=== PATIENT | female | born 1940 | race Asian ===

== ENCOUNTER 2020-09-26 00:14 | Inpatient (IN) | payer OTHER, MEDICAID, SELFPAY ==
[~2020-09-26] VITALS: Ht 144.8 cm; Wt 51.2 kg
[2020-09-26 12:00] VITALS: BP_SYST 140
[2020-09-26] MEDS ORDERED: OMEG-158 PO (14:24)
[2020-09-26] MEDS ORDERED: MULT-1117 PO (14:25)
[2020-09-26 15:58] LABS: BASOPHILS % (AUTO) 0.1 % (0.0-2.0); EOSINOPHILS % (AUTO) 0.3 % (0.0-4.0); HEMATOCRIT 38.7 % (36-54); HEMOGLOBIN 13.6 g/dL (14.0-18.0); LYMPHOCYTES % (AUTO) 9.5 % (20.5-51.5); MEAN CORPUSCULAR HEMOGLOBIN 32 pg (27-31); MEAN CORPUSCULAR HGB CONC 35 % (32-36); MEAN CORPUSCULAR VOLUME 91 fL (79.0-98.0); MONOCYTES # (AUTO) 0.3 K/uL (0.0-1.0); MONOCYTES % (AUTO) 3.3 % (1.7-9.3); NEUTROPHILS # (AUTO) 8.7 K/uL (1.8-7.7); NEUTROPHILS % (AUTO) 86.8 % (40.0-70.0); PLATELET COUNT (AUTO) 302 K/uL (130-430); RED BLOOD CELL COUNT(AUTO) 4.27 MIL/uL (4.2-6.2); RED CELL DISTRIBUTION WIDTH 12.5 % (9.0-15.0)
[2020-09-26 16:13] LABS: CHOLESTEROL 221 mg/dL (<200); HDL CHOLESTEROL 59 mg/dL (>45); LDL CHOLESTEROL 136 mg/dL (<100); TRIGLYCERIDES 78 mg/dL (30-150)
[2020-09-26 16:14] VITALS: BP_SYST 132
[2020-09-26 16:20] LABS: ALANINE AMINOTRANSFERASE 19 U/L (12-78); ALBUMIN 3.4 g/dL (3.4-4.8); ANION GAP 9 (5-15); ASPARTATE AMINOTRANSFERASE 16 U/L (10-37); CHLORIDE 97 mmol/L (98-107); CREATININE 0.74 mg/dL (0.55-1.30); GLUCOSE 178 mg/dL (70-99); POTASSIUM 3.5 mmol/L (3.5-5.1); SODIUM SERUM 135 mmol/L (136-145); THYROID STIMULATING HORMONE 0.29 uIu/mL (0.36-3.74); TOTAL BILIRUBIN 0.5 mg/dL (0.0-1.0); UREA NITROGEN, BLOOD 10 mg/dL (8-21)
[2020-09-26 16:45] LABS: ERYTHROCYTE SEDIMENTATION RATE 37 MM/HR (0-15)
[2020-09-26 16:47] LABS: INR 0.9 (0.80-1.20); PROTHROMBIN TIME 9.6 SECS (9.5-12.5)
[2020-09-26] MEDS: DIPHENHYDRAMINE INJ 50 MG/ML VIAL IVP PRN (16:51)
[2020-09-26] MEDS: PIPERACILLIN/TAZO 3.375/DEX-IS 50 ML IV SCH ×2 (16:52→23:03)
[2020-09-26] MEDS: D5/0.45 NS 1,000 ML IV SCH (16:52)
[2020-09-26 20:03] VITALS: BP_SYST 111
[2020-09-27] VITALS: BP_SYST 128
[2020-09-27] MEDS ORDERED: VANCOMYCIN HCL 1 GM/NS PREMIX 250 ML IV ONE (01:30)
[2020-09-27] MEDS: VANCOMYCIN HCL 1000 MG/VIAL IV ONE ×2 (02:23→02:26)
[2020-09-27 08:00] VITALS: BP_SYST 136
[2020-09-27] MEDS: EMOLLIENT COMBINATION NO.73 78 GM CREAM..G. TP SCH ×2 (08:39→21:08)
[2020-09-27 12:15] VITALS: BP_SYST 126
[2020-09-27] MEDS: D5/0.45 NS 1,000 ML IV SCH (14:43)
[2020-09-27] MEDS: DIPHENHYDRAMINE INJ 50 MG/ML VIAL IVP PRN (14:46)
[2020-09-27 16:30] VITALS: BP_SYST 129
[2020-09-27 20:00] VITALS: BP_SYST 133
[2020-09-27] MEDS: VANCOMYCIN HCL 750 MG in NS 250 ML IV SCH (22:51)
[2020-09-28 00:02] VITALS: BP_SYST 150
[2020-09-28] MEDS: D5/0.45 NS 1,000 ML IV SCH (05:10)
[2020-09-28 08:18] VITALS: BP_SYST 154
[2020-09-28] MEDS: OMEGA-3/DHA/EPA/FISH OIL 1 GM CAPSULE PO SCH (08:19)
[2020-09-28] MEDS: EMOLLIENT COMBINATION NO.73 78 GM CREAM..G. TP SCH ×2 (08:19→20:20)
[2020-09-28] MEDS: MULTIVITAMINS TAB 1 TABLET PO SCH (08:19)
[2020-09-28 12:05] VITALS: BP_SYST 144
[2020-09-28] MEDS ORDERED: AMMONIUM LACTATE 226 GM LOTION TP ONE (13:00)
[2020-09-28 16:32] VITALS: BP_SYST 151
[2020-09-28 20:00] VITALS: BP_SYST 144
[2020-09-28] MEDS: AMMONIUM LACTATE 226 GM LOTION TP SCH (20:21)
[2020-09-28] MEDS: VANCOMYCIN HCL 750 MG in NS 250 ML IV SCH (22:58)
[2020-09-29 00:41] VITALS: BP_SYST 147
[2020-09-29] MEDS: D5/0.45 NS 1,000 ML IV SCH (03:08)
[2020-09-29 07:00] LABS: BASOPHILS % (AUTO) 0.6 % (0.0-2.0); EOSINOPHILS # (AUTO) 0.2 K/uL (0.0-0.4); EOSINOPHILS % (AUTO) 3.4 % (0.0-4.0); HEMATOCRIT 38.1 % (36-48); HEMOGLOBIN 12.8 g/dL (12.0-16.0); LYMPHOCYTES # (AUTO) 1.3 K/uL (1.0-5.5); LYMPHOCYTES % (AUTO) 18.3 % (20.5-51.5); MEAN CORPUSCULAR HEMOGLOBIN 31 pg (27-31); MEAN CORPUSCULAR HGB CONC 34 % (32-36); MEAN CORPUSCULAR VOLUME 92 fL (79.0-98.0); MONOCYTES # (AUTO) 0.8 K/uL (0.0-1.0); MONOCYTES % (AUTO) 11.5 % (1.7-9.3); NEUTROPHILS # (AUTO) 4.5 K/uL (1.8-7.7); NEUTROPHILS % (AUTO) 66.2 % (40.0-70.0); PLATELET COUNT (AUTO) 277 K/uL (130-430); RED BLOOD CELL COUNT(AUTO) 4.16 MIL/uL (4.2-6.2); RED CELL DISTRIBUTION WIDTH 12.7 % (9.0-15.0); WHITE BLOOD COUNT (AUTO) 6.9 K/uL (4.8-10.8)
[2020-09-29 07:23] LABS: ANION GAP 9 (5-15); CALCIUM 8.3 mg/dL (8.4-11.0); CHLORIDE 103 mmol/L (98-107); CREATININE 0.64 mg/dL (0.55-1.30); GLUCOSE 103 mg/dL (70-99); POTASSIUM 3.7 mmol/L (3.5-5.1); SODIUM SERUM 138 mmol/L (136-145); UREA NITROGEN, BLOOD 9 mg/dL (8-21)
[2020-09-29 08:19] VITALS: BP_SYST 128
[2020-09-29] MEDS: OMEGA-3/DHA/EPA/FISH OIL 1 GM CAPSULE PO SCH (08:21)
[2020-09-29] MEDS: MULTIVITAMINS TAB 1 TABLET PO SCH (08:21)
[2020-09-29] MEDS: AMMONIUM LACTATE 226 GM LOTION TP SCH (08:21)
[2020-09-29] MEDS: EMOLLIENT COMBINATION NO.73 78 GM CREAM..G. TP SCH (08:22)
[2020-09-29 12:03] VITALS: BP_SYST 133
[2020-09-29] MEDS ORDERED: LEVO500T89 PO (13:38)
[2020-09-29 14:22] VITALS: BP_SYST 133
[2020-09-29 15:22] VITALS: BP_SYST 142
== END 2020-09-29 19:35 | DRG 603 ==
LOC: SMU 11:30 → EDSEX 11:30
PROVIDERS: ADMIT Internal Medicine; ATTEND Internal Medicine
DX: L03.116 Cellulitis of left lower limb (principal); L50.0 Allergic urticaria; L03.115 Cellulitis of right lower limb; G20 Parkinson's disease; T78.49XA Other allergy, initial encounter; T50.995A Adverse effect of other drugs, medicaments and biological substances, initial encounter; Y92.89 Other specified places as the place of occurrence of the external cause; X58.XXXA Exposure to other specified factors, initial encounter; Z20.822 Contact with and (suspected) exposure to COVID-19; F02.80 Dementia in other diseases classified elsewhere, unspecified severity, without behavioral disturbance, psychotic disturbance, mood disturbance, and anxiety
CPT/HCPCS: 36415; 71045; 80048; 80053; 80061; 83880; 84443; 85025; 85379; 85610-TC; 85651-TC; 85730-TC; 87081; J1200; J2543; J3370; J7050

== ENCOUNTER 2021-11-30 00:45 | Inpatient (IN) | payer OTHER, MEDICAID ==
[~2021-11-30] VITALS: Ht 165.1 cm; Wt 54.4 kg
[~2021-11-30 00:45] MED LIST: LEVO-62 PO; MULT-1117 PO; OMEG-158 PO
--- NOTE | 2021-11-30 02:13 | NUR ---
PHONED PAGED DR SAILAJA REYES REGARDING D/A ORDERS / .
--- NOTE | 2021-11-30 02:23 | NUR ---
Patient awake this hour on NASAL CANNULA 4 LITERS PER MINUTE 02 SAT 97 % SKIN DRY WARM , RESPIRATIONS REMAIN REGULAR ALSO UNLABORED , KEPT CLEAN ALSO DRY NEEDED SAFETY MEASURES IMPLEMENTED , NO SOB NOTED CONTINUE TO MONITOR / .
--- NOTE | 2021-11-30 02:23 | NUR ---
SPOKE WITH DR SAILAJA REYES , NEW ORDERS OBTAINED / .
--- NOTE | 2021-11-30 03:07 | NUR ---
MRSA of the Nares collected & sent to lab .
[2021-11-30 03:43] VITALS: BP_SYST 125
[2021-11-30 06:38] LABS: BASOPHILS % (AUTO) 0.2 % (0.0-2.0); EOSINOPHILS # (AUTO) 0.1 K/uL (0.0-0.4); EOSINOPHILS % (AUTO) 0.2 % (0.0-4.0); HEMATOCRIT 35.1 % (36-48); HEMOGLOBIN 12.1 g/dL (12.0-16.0); LYMPHOCYTES # (AUTO) 1.5 K/uL (1.0-5.5); LYMPHOCYTES % (AUTO) 6.2 % (20.5-51.5); MEAN CORPUSCULAR HEMOGLOBIN 31 pg (27-31); MEAN CORPUSCULAR HGB CONC 35 % (32-36); MEAN CORPUSCULAR VOLUME 88 fL (79.0-98.0); MONOCYTES # (AUTO) 0.9 K/uL (0.0-1.0); MONOCYTES % (AUTO) 3.6 % (1.7-9.3); NEUTROPHILS # (AUTO) 21.2 K/uL (1.8-7.7); NEUTROPHILS % (AUTO) 89.8 % (40.0-70.0); PLATELET COUNT (AUTO) 166 K/uL (130-430); RED BLOOD CELL COUNT(AUTO) 3.97 MIL/uL (4.2-6.2); RED CELL DISTRIBUTION WIDTH 13.3 % (9.0-15.0); WHITE BLOOD COUNT (AUTO) 23.7 K/uL (4.8-10.8)
[2021-11-30 08:02] LABS: ALANINE AMINOTRANSFERASE 36 U/L (12-78); ALBUMIN 2.7 g/dL (3.4-4.8); ANION GAP 7 (5-15); ASPARTATE AMINOTRANSFERASE 33 U/L (10-37); CALCIUM 7.7 mg/dL (8.4-11.0); CHLORIDE 106 mmol/L (98-107); CREATININE 1.14 mg/dL (0.55-1.30); GLUCOSE 115 mg/dL (70-99); POTASSIUM 3.9 mmol/L (3.5-5.1); SODIUM SERUM 141 mmol/L (136-145); TOTAL BILIRUBIN 0.5 mg/dL (0.0-1.0); UREA NITROGEN, BLOOD 22 mg/dL (8-21)
--- NOTE | 2021-11-30 08:30 | NUR ---
rapid covid test administered and sent to lab
--- NOTE | 2021-11-30 10:29 | NUR ---
CONSULTATION PAGED/CALLED Reason for Consultation: [] Elevated WBC Person Who was Notified: [] Sherri Consulting Physician: [] Dr Bennett Mcdonald Superintendent [employer] Specialty: [] ID Ordering Physician: [] Dr Alberto
[2021-11-30] MEDS ORDERED: IPRATROPIUM/ALBUTEROL SULFATE 3 ML AMPUL.NEB (DUONEB) INH PRN (10:30)
--- NOTE | 2021-11-30 10:30 | NUR ---
CONSULTATION PAGED/CALLED Reason for Consultation: [] wheezing Person Who was Notified: [] Florecita Consulting Physician: [] DR MAGALLANES Insulator Technician Specialty: [] Pulmo Ordering Physician: [] Dr Alberto
--- NOTE | 2021-11-30 10:30 | NUR ---
call to for audible wheezing and wbc 23.7. vss, afebrile. 98% 0n 4l nc received new order for duoneb tx prn , cxr and id consult and pulm consult
[2021-11-30 10:36] VITALS: BP_SYST 125
[2021-11-30] MEDS ORDERED: IPRATROPIUM/ALBUTEROL SULFATE 3 ML AMPUL.NEB (DUONEB) ONE (10:44)
[2021-11-30] MEDS ORDERED: guaiFENesin 200 MG/10 ML UDC PO PRN (13:30)
[2021-11-30] MEDS: cefTRIAXone 1 GM in D5W 50 ML IV SCH (16:16)
[2021-11-30] MEDS ORDERED: IPRATROPIUM/ALBUTEROL SULFATE 3 ML AMPUL.NEB (DUONEB) INH SCH (16:30)
[2021-11-30] MEDS: METHYLPREDNISOLONE SOD SUCC 40 MG/ML VIAL IVP SCH ×2 (16:35→20:23)
[2021-11-30 17:31] VITALS: BP_SYST 128
[2021-11-30] MEDS: AZITHROMYCIN 500 MG in NS 250 ML IV SCH (18:10)
[2021-11-30 20:00] VITALS: BP_SYST 140
--- NOTE | 2021-11-30 22:25 | NUR ---
Patient in bed. Turned repositioned q2. No acute distress noted. Compliant with all medications. Will continue to monitor.
[2021-12-01] MEDS ORDERED: IPRATROPIUM/ALBUTEROL SULFATE 3 ML AMPUL.NEB (DUONEB) INH PRN
[2021-12-01] MEDS: IPRATROPIUM/ALBUTEROL SULFATE 3 ML AMPUL.NEB (DUONEB) INH SCH ×4 (01:06→20:13)
[2021-12-01 01:25] VITALS: BP_SYST 146
[2021-12-01] MEDS: METHYLPREDNISOLONE SOD SUCC 40 MG/ML VIAL IVP SCH ×3 (05:12→21:54)
--- NOTE | 2021-12-01 05:49 | NUR ---
No changes to patient's current assessment.
--- NOTE | 2021-12-01 07:48 | NUR ---
Report received from ANTIONETTE Terrazas for continuity of care. No distress noted. Vital signs stable. Patient resting at the moment.
[2021-12-01 07:49] LABS: HEMATOCRIT 36.1 % (36-48); HEMOGLOBIN 12.4 g/dL (12.0-16.0); LYMPHOCYTES # (AUTO) 0.5 K/uL (1.0-5.5); LYMPHOCYTES % (AUTO) 3.7 % (20.5-51.5); MEAN CORPUSCULAR HEMOGLOBIN 31 pg (27-31); MEAN CORPUSCULAR HGB CONC 34 % (32-36); MEAN CORPUSCULAR VOLUME 89 fL (79.0-98.0); MONOCYTES # (AUTO) 0.2 K/uL (0.0-1.0); MONOCYTES % (AUTO) 1.2 % (1.7-9.3); NEUTROPHILS # (AUTO) 13.5 K/uL (1.8-7.7); NEUTROPHILS % (AUTO) 95.1 % (40.0-70.0); PLATELET COUNT (AUTO) 162 K/uL (130-430); RED BLOOD CELL COUNT(AUTO) 4.04 MIL/uL (4.2-6.2); RED CELL DISTRIBUTION WIDTH 13.2 % (9.0-15.0); WHITE BLOOD COUNT (AUTO) 14.2 K/uL (4.8-10.8)
[2021-12-01 08:26] LABS: ANION GAP 7 (5-15); CHLORIDE 107 mmol/L (98-107); GLUCOSE 172 mg/dL (70-99); SODIUM SERUM 141 mmol/L (136-145); UREA NITROGEN, BLOOD 19 mg/dL (8-21)
[2021-12-01] MEDS: MULTIVITAMINS TAB 1 TABLET PO SCH (09:14)
[2021-12-01 13:04] VITALS: BP_SYST 157
[2021-12-01] MEDS: cefTRIAXone 1 GM in D5W 50 ML IV SCH (13:28)
[2021-12-01] MEDS: AZITHROMYCIN 500 MG in NS 250 ML IV SCH (13:28)
--- NOTE | 2021-12-01 13:56 | NUR ---
Patient refused to give urine. No distress noted. made aware.
[2021-12-01 16:34] VITALS: BP_SYST 155
--- NOTE | 2021-12-01 16:37 | NUR ---
Patient found by JESUSITA Borden standing up half naked out of bed. Patient re-oriented back to bed and side rails placed up. Patient began pulling on lines. Dr. Alberto called and made aware. New orders noted and carried out.
[2021-12-01 18:53] VITALS: BP_SYST 136
--- NOTE | 2021-12-01 19:36 | NUR ---
Report given to ANTIONETTE Cook for continuity of care. Patient in stable condition. Still on bilateral soft wrist restraints. No distress noted.
[2021-12-01 20:00] VITALS: BP_SYST 150
--- NOTE | 2021-12-02 00:30 | NUR ---
Patient was able to undo restraints twice. When attempted to put it back, patient got so agitated that heart rate went up to 130's and was in mild distress, refusing to wear oxygen via N/C. Noted patient became redirectible and cooperative with nursing care and not pulling any tubes. Bilateral soft wrist restraints discontinued. Noted Patient gets agitated when she's wet. Provided perineal care q 2 hours and bed alarm on.
[2021-12-02] MEDS: IPRATROPIUM/ALBUTEROL SULFATE 3 ML AMPUL.NEB (DUONEB) INH SCH ×4 (01:19→21:47)
[2021-12-02] MEDS: METHYLPREDNISOLONE SOD SUCC 40 MG/ML VIAL IVP SCH ×3 (05:59→21:48)
[2021-12-02 07:03] LABS: BASOPHILS % (AUTO) 0.1 % (0.0-2.0); HEMATOCRIT 35.2 % (36-48); HEMOGLOBIN 12.1 g/dL (12.0-16.0); LYMPHOCYTES # (AUTO) 0.6 K/uL (1.0-5.5); LYMPHOCYTES % (AUTO) 4.2 % (20.5-51.5); MEAN CORPUSCULAR HEMOGLOBIN 31 pg (27-31); MEAN CORPUSCULAR HGB CONC 35 % (32-36); MEAN CORPUSCULAR VOLUME 89 fL (79.0-98.0); MONOCYTES # (AUTO) 0.4 K/uL (0.0-1.0); MONOCYTES % (AUTO) 2.8 % (1.7-9.3); NEUTROPHILS # (AUTO) 14.5 K/uL (1.8-7.7); NEUTROPHILS % (AUTO) 92.9 % (40.0-70.0); PLATELET COUNT (AUTO) 177 K/uL (130-430); RED BLOOD CELL COUNT(AUTO) 3.95 MIL/uL (4.2-6.2); RED CELL DISTRIBUTION WIDTH 13.4 % (9.0-15.0); WHITE BLOOD COUNT (AUTO) 15.6 K/uL (4.8-10.8)
--- NOTE | 2021-12-02 08:00 | NUR ---
OPENING NOTE REPORT RECEIVED FROM COMPUTER GRAPHIC ARTIST NURSE. PATIENT RECEIVED LYING IN BED, AWAKE, NO S/S OF ACUTE DISTRESS. BREATHING EVEN AND UNLABORED. HOB RAISED, RA IV SITE PATENT, NO SIGNS OF INFILTRATION OR INFECTION NOTED. SKIN WARM AND DRY TO TOUCH, NO S/S NOTED. CALL LIGHT WITH PATIENT. BED IS LOCKED AND AT LOWEST POSITION. WILL CONTINUE TO MONITOR.
[2021-12-02 08:22] LABS: ANION GAP 8 (5-15); CALCIUM 8.3 mg/dL (8.4-11.0); CHLORIDE 108 mmol/L (98-107); CREATININE 0.97 mg/dL (0.55-1.30); GLUCOSE 164 mg/dL (70-99); SODIUM SERUM 144 mmol/L (136-145); UREA NITROGEN, BLOOD 28 mg/dL (8-21)
[2021-12-02] MEDS: MULTIVITAMINS TAB 1 TABLET PO SCH (09:57)
[2021-12-02] MEDS: cefTRIAXone 1 GM in D5W 50 ML IV SCH (13:24)
[2021-12-02] MEDS: AZITHROMYCIN 500 MG in NS 250 ML IV SCH (13:24)
[2021-12-02 13:38] VITALS: BP_SYST 144
--- NOTE | 2021-12-02 15:17 | NUR ---
Dietitian Recommendations * Continue 2 gm Na diet BRAD, MS, RD Please refer to Nutrition Assessment for details. Addendum: 12/02/21 at [address] Amended: Links added.
[2021-12-02 16:00] VITALS: BP_SYST 149
--- NOTE | 2021-12-02 19:19 | NUR ---
SHIFT REPORT REPORT GIVEN TO NIGHTSHIFT NURSE CHART CHECK DONE SBAR GIVEN YES PATIENT ENDORSED FOR CONTINUATION OF CARE ALL QUESTION ANSWERED.
--- NOTE | 2021-12-02 19:38 | NUR ---
RECEIVED REPORT ON PATIENT FROM ANTIONETTE BOUCHER, ASSUMED CARE, AND STARTED ASSESSMENT.
[2021-12-02 20:00] VITALS: BP_SYST 166
[2021-12-03 01:25] VITALS: BP_SYST 139
[2021-12-03] MEDS: METHYLPREDNISOLONE SOD SUCC 40 MG/ML VIAL IVP SCH ×3 (05:37→23:01)
[2021-12-03] MEDS: IPRATROPIUM/ALBUTEROL SULFATE 3 ML AMPUL.NEB (DUONEB) INH SCH ×3 (07:06→19:33)
[2021-12-03 08:00] VITALS: BP_SYST 149
--- NOTE | 2021-12-03 08:47 | NUR ---
Opening note: Report received from ANTIONETTE Silveira for continuity of care. Patient stable condition. No distress noted. Will continue to monitor.
--- NOTE | 2021-12-03 11:09 | NUR ---
NOTES; Dr. Borrego called and following up on the urine culture ordered 2 days ago, informed nurse Delano, will cllect later.
[2021-12-03] MEDS: MULTIVITAMINS TAB 1 TABLET PO SCH (11:15)
[2021-12-03] MEDS: cefTRIAXone 1 GM in D5W 50 ML IV SCH (11:27)
[2021-12-03 12:49] VITALS: BP_SYST 159
[2021-12-03 13:56] LABS: BILIRUBIN,URINE NEGATIVE (NEGATIVE); BLOOD, URINE 1+ (NEGATIVE); CLARITY/URINE CLEAR (CLEAR); COLOR,URINE YELLOW (YELLOW); GLUCOSE,URINE NEGATIVE (NEGATIVE); KETONES,URINE NEGATIVE (NEGATIVE); LEUKOCYTE ESTERASE ,URINE NEGATIVE (NEGATIVE); NITRITE, URINE NEGATIVE (NEGATIVE); PROTEIN URINE 2+ (NEGATIVE); UROBILINOGEN,URINE 0.2 (0.2-1.0)
[2021-12-03 14:11] LABS: BACTERIA,URINE RARE /HPF (None Seen); RBC,URINE 0-3 /HPF (0-3); WBC,URINE 0-3 /HPF (0-3)
[2021-12-03 14:12] LABS: MUCUS,URINE 1+ /LPF (None Seen)
[2021-12-03] MEDS: AZITHROMYCIN 500 MG in NS 250 ML IV SCH (15:08)
[2021-12-03 16:50] VITALS: BP_SYST 143
--- NOTE | 2021-12-03 19:28 | NUR ---
RECEIVED REPORT ON PATIENT FROM KRZYSZTOF RN, ASSUMED CARE, AND STARTED ASSESSMENT.
--- NOTE | 2021-12-03 19:38 | NUR ---
Report given to ANTIONETTE Silveira for continuity of care. Patient stable condition. No distress noted. Patient able to stay in bed safely. Will continue to monitor.
[2021-12-03 20:00] VITALS: BP_SYST 170
--- NOTE | 2021-12-03 20:30 | NUR ---
PATIENT IV WAS FOUND LYING ON THE FLOOR. IT IS NOT CLEAR HOW THE IV LINE CAME OUT BUT IT MUST BE REPLACED FOR IV THERAPY. WILL CONTINUE TO MONITOR AND ASSESS FOR SAFETY AND COMFORT.
--- NOTE | 2021-12-03 23:11 | NUR ---
RESTARTED IV WITH 22GAUGE TO THE DORSUM OF THE RIGHT HAND. 2200 SOLUM[address]ROL WAS GIVEN. IV IS PATENT AND FUNCTIONING PROPERLY. WILL CONTINUE TO MONITOR AND ASSESS FOR SAFETY AND COMFORT.
[2021-12-04] VITALS: BP_SYST 156
[2021-12-04] MEDS: IPRATROPIUM/ALBUTEROL SULFATE 3 ML AMPUL.NEB (DUONEB) INH SCH ×4 (01:40→19:41)
[2021-12-04] MEDS: METHYLPREDNISOLONE SOD SUCC 40 MG/ML VIAL IVP SCH ×2 (05:40→22:51)
--- NOTE | 2021-12-04 07:27 | NUR ---
REPORT GIVEN TO ANTIONETTE BLANKENSHIP, AND CARE WAS TURNED OVER TO HIM.
--- NOTE | 2021-12-04 07:33 | NUR ---
Report received from ANTIONETTE Silveira for continuity of care. Patient in stable condition. No active distress noted.
[2021-12-04 08:00] VITALS: BP_SYST 152
[2021-12-04] MEDS: MULTIVITAMINS TAB 1 TABLET PO SCH (08:53)
--- NOTE | 2021-12-04 09:03 | NUR ---
made aware of blood pressure 152/70, hr: 85 bp,
--- NOTE | 2021-12-04 09:24 | NUR ---
INFORMED MASS SPECTROMETRY MANAGER ANDY THAT THE PATIENT HAS BEEN OFF THE TELE MONITOR SINCE 07:59
[2021-12-04 12:00] VITALS: BP_SYST 145
--- NOTE | 2021-12-04 12:21 | NUR ---
INFORMED ANTIONETTE BLANKENSHIP THAT THE PATIENT HAS BEEN OFF THE TELE MONITOR SINCE 11:57
[2021-12-04] MEDS: cefTRIAXone 1 GM in D5W 50 ML IV SCH (14:06)
[2021-12-04] MEDS: AZITHROMYCIN 500 MG in NS 250 ML IV SCH (14:55)
[2021-12-04 16:00] VITALS: BP_SYST 136
[2021-12-04 19:48] VITALS: BP_SYST 136
--- NOTE | 2021-12-04 19:50 | NUR ---
OPENING NOTE PT IS SEMI FOWLERS IN BED WITH EYES OPEN. NO APPARENT DISTRESS NOTED AT THIS TIME. BED IN LOWEST POSITION WITH FALL AND SAFETY PRECAUTIONS IN PLACE. ALL NEEDS MET AT THIS TIME
[2021-12-04 20:00] VITALS: BP_SYST 150
--- NOTE | 2021-12-04 20:03 | NUR ---
Report given to JESUSITA Balbuena for continuity of care. Patient in stable condition. On air loss mattress.
[2021-12-05] VITALS: BP_SYST 159
[2021-12-05] MEDS: IPRATROPIUM/ALBUTEROL SULFATE 3 ML AMPUL.NEB (DUONEB) INH SCH ×3 (05:38→13:34)
[2021-12-05 06:34] LABS: BASOPHILS % (AUTO) 0.2 % (0.0-2.0); HEMATOCRIT 40.1 % (36-48); HEMOGLOBIN 14.1 g/dL (12.0-16.0); LYMPHOCYTES # (AUTO) 0.6 K/uL (1.0-5.5); LYMPHOCYTES % (AUTO) 6.9 % (20.5-51.5); MEAN CORPUSCULAR HEMOGLOBIN 31 pg (27-31); MEAN CORPUSCULAR HGB CONC 35 % (32-36); MEAN CORPUSCULAR VOLUME 89 fL (79.0-98.0); MONOCYTES # (AUTO) 0.3 K/uL (0.0-1.0); MONOCYTES % (AUTO) 3.3 % (1.7-9.3); NEUTROPHILS # (AUTO) 8.2 K/uL (1.8-7.7); NEUTROPHILS % (AUTO) 89.6 % (40.0-70.0); PLATELET COUNT (AUTO) 193 K/uL (130-430); RED BLOOD CELL COUNT(AUTO) 4.52 MIL/uL (4.2-6.2); RED CELL DISTRIBUTION WIDTH 13.3 % (9.0-15.0); WHITE BLOOD COUNT (AUTO) 9.1 K/uL (4.8-10.8)
[2021-12-05 06:49] LABS: ANION GAP 7 (5-15); CALCIUM 8.1 mg/dL (8.4-11.0); CHLORIDE 104 mmol/L (98-107); CREATININE 0.77 mg/dL (0.55-1.30); GLUCOSE 178 mg/dL (70-99); POTASSIUM 3.6 mmol/L (3.5-5.1); SODIUM SERUM 140 mmol/L (136-145); UREA NITROGEN, BLOOD 29 mg/dL (8-21)
--- NOTE | 2021-12-05 06:52 | NUR ---
CLOSING NOTE PT IS SEMI FOWLERS IN BED WITH EYES CLOSED. NO APPARENT SIGNS OF DISTRESS NOTED AT THIS TIME. BED IN LOWEST POSITION WITH FALL AND SAFETY PRECAUTIONS IN PLACE. ALL NEEDS MET AT THIS TIME
[2021-12-05 07:39] VITALS: BP_SYST 156
--- NOTE | 2021-12-05 07:58 | NUR ---
Report received from JESUSITA Balbuena for continuity of care. Patient resting at the moment.
[2021-12-05] MEDS: MULTIVITAMINS TAB 1 TABLET PO SCH (08:38)
[2021-12-05] MEDS: METHYLPREDNISOLONE SOD SUCC 40 MG/ML VIAL IVP SCH (08:38)
[2021-12-05 12:43] VITALS: BP_SYST 160
[2021-12-05] MEDS: cefTRIAXone 1 GM in D5W 50 ML IV SCH (13:30)
--- NOTE | 2021-12-05 14:51 | NUR ---
Discharge Planning: RMP faxed pt referral to [facility] [phone], RMP to follow up Addendum: 12/05/21 at 1546 by Monica Ivey DP ZEYAD arranged transport with [facility] [phone] BLS 6:00pm P/U to [facility]/ [phone] Rm [id number]. DCP made CM and nurse aware. Patient packet taken to nurse station.
[2021-12-05 16:13] VITALS: BP_SYST 143
--- NOTE | 2021-12-05 17:16 | NUR ---
Report given to ANTIONETTE Perez for continuity of care to [facility]. Report given to Dorian EMT at [facility] Care unit 101 ; [id number]
[2021-12-05] MEDS ORDERED: ROCPM1 IV (17:19)
[2021-12-05 17:22] VITALS: BP_SYST 130
--- NOTE | 2021-12-05 17:39 | NUR ---
Spoke to Leif Garcia, patient's grandson [facility], to room 105-A.
== END 2021-12-05 18:39 | DRG 871 ==
LOC: STU 00:45
PROVIDERS: ADMIT Internal Medicine; ATTEND Internal Medicine
DX: A41.9 Sepsis, unspecified organism (principal); E43 Unspecified severe protein-calorie malnutrition; J69.0 Pneumonitis due to inhalation of food and vomit; J96.01 Acute respiratory failure with hypoxia; N17.0 Acute kidney failure with tubular necrosis; N39.0 Urinary tract infection, site not specified; I10 Essential (primary) hypertension; G30.9 Alzheimer's disease, unspecified; F02.80 Dementia in other diseases classified elsewhere, unspecified severity, without behavioral disturbance, psychotic disturbance, mood disturbance, and anxiety; Z20.822 Contact with and (suspected) exposure to COVID-19; Z79.899 Other long term (current) drug therapy; Z68.20 Body mass index [BMI] 20.0-20.9, adult
CPT/HCPCS: 36415; 71045; 80048; 80053; 81000; 85025; 87081; 87086; 94640; 94760; G0378; J0456; J0696; J1030; J7050; J7060